=== PATIENT | female | born 1960 | race Caucasian/White ===

== ENCOUNTER 2018-05-15 11:49 | Emergency (ER) | payer OTHER | END 2018-05-15 15:48 | disposition home or self-care (01) | LOC: E/R 11:49 | DX: S09.90XA Unspecified injury of head, initial encounter (principal); S23.3XXA Sprain of ligaments of thoracic spine, initial encounter; R51 Headache; W01.190A Fall on same level from slipping, tripping and stumbling with subsequent striking against furniture, initial encounter | CPT/HCPCS: 70450; 71045; 72072; 99284-25 ==

== ENCOUNTER 2019-01-16 22:09 | Emergency (ER) | payer OTHER | END 2019-01-17 00:36 | disposition home or self-care (01) | LOC: FTE 22:09 | DX: H00.019 Hordeolum externum unspecified eye, unspecified eyelid (principal) | CPT/HCPCS: 99283; Z7502 ==